=== PATIENT | male | born 1950 | race Caucasian/White ===

== ENCOUNTER 2016-12-08 10:32 | Emergency (ER) | payer SELFPAY ==
[~2016-12-08] VITALS: Ht 170.2 cm; Wt 70.0 kg
[2016-12-08 10:35] VITALS: BP 142/96
== END 2016-12-08 14:19 | disposition left against medical advice (07) ==
LOC: ER 10:43
DX: R10.9 Unspecified abdominal pain (principal); Z53.21 Procedure and treatment not carried out due to patient leaving prior to being seen by health care provider

== ENCOUNTER 2016-12-08 14:43 | Inpatient (IN) | payer MEDICAID, OTHER ==
[~2016-12-08] VITALS: Ht 162.6 cm; Wt 64.0 kg
[2016-12-08] MEDS ORDERED: SODIUM CHLORIDE 0.9% 1,000 ML IV ONE (16:28)
[2016-12-08] MEDS ORDERED: FAMOTIDINE 20MG/2ML VIAL IV STA (16:28)
[2016-12-08] MEDS ORDERED: ONDANSETRON HCL 4MG/2ML VIAL IV ONE (16:30)
[2016-12-08 16:54] LABS: HEMATOCRIT. 31.5 % (42.0-52.0); HEMOGLOBIN. 10.8 g/dL (14.0-18.0); MEAN CORPUSCULAR HEMOGLOBIN 29.8 pg (28.0-32.0); MEAN CORPUSCULAR VOLUME 86.3 fL (80.0-94.0); MEAN PLATELET VOLUME 8.2 fl (7.4-10.4); PLATELET 55 x1000/uL (130-400); RED BLOOD CELL COUNT 3.64 mill/uL (4.7-6.1); RED CELL DISTRIBUTION WIDTH 22.3 % (11.6-14.6)
[2016-12-08 16:59] LABS: INR 1.1; PROTHROMBIN TIME 11.7 sec
[2016-12-08 17:05] LABS: CARBON DIOXIDE 24 mEq/L (21-32); CHLORIDE 81 mEq/L (98-107); ETHANOL BLOOD < 10 mg/dL
[2016-12-08 17:12] LABS: PLATELET ESTIMATE DECREASED
[2016-12-08] MEDS ORDERED: LORAZEPAM 1MG TABLET PO ONE (18:30)
[2016-12-08 18:42] LABS: CLARITY URINE CLEAR (CLEAR); COLOR URINE YELLOW (YELLOW); GLUCOSE URINE 2+ (NEGATIVE); KETONES URINE NEGATIVE (NEGATIVE); LEUKOCYTE ESTERASE URINE NEGATIVE (NEGATIVE); NITRITE URINE NEGATIVE (NEGATIVE); OCCULT BLOOD URINE NEGATIVE (NEGATIVE); PROTEIN URINE NEGATIVE (NEGATIVE); SPECIFIC GRAVITY URINE 1.019 (1.005-1.030); UROBILINOGEN URINE 0.2 E.U./dL (0.2-1.0)
[2016-12-08 18:52] LABS: *AMPHETAMINES SCREEN URINE NEGATIVE (NEGATIVE); *BARBITURATES SCREEN URINE NEGATIVE (NEGATIVE); *BENZODIAZEPINES SCREEN URINE NEGATIVE (NEGATIVE); *COCAINE SCREEN URINE NEGATIVE (NEGATIVE); CANNABINOID URINE SCREEN NEGATIVE (NEGATIVE); METHADONE URINE SCREEN NEGATIVE (NEGATIVE); OPIATES URINE SCREEN NEGATIVE (NEGATIVE); PHENCYCLIDINE URINE SCREEN NEGATIVE (NEGATIVE)
[2016-12-08 21:30] VITALS: BP 161/110
[2016-12-08 22:30] VITALS: BP 161/110
[2016-12-08] MEDS ORDERED: MORPHINE SULFATE 2 MG/ML CPJ (NOT FOR IM USE) IV PRN (23:15)
[2016-12-09] VITALS: BP 159/101
[2016-12-09] MEDS ORDERED: SODIUM CHLORIDE 0.9% 1,000 ML IV SCH
[2016-12-09 03:30] LABS: *AMPHETAMINES SCREEN URINE NEGATIVE (NEGATIVE); *BARBITURATES SCREEN URINE NEGATIVE (NEGATIVE); *BENZODIAZEPINES SCREEN URINE NEGATIVE (NEGATIVE); *COCAINE SCREEN URINE NEGATIVE (NEGATIVE); CANNABINOID URINE SCREEN NEGATIVE (NEGATIVE); METHADONE URINE SCREEN NEGATIVE (NEGATIVE); OPIATES URINE SCREEN NEGATIVE (NEGATIVE); PHENCYCLIDINE URINE SCREEN NEGATIVE (NEGATIVE)
[2016-12-09 04:00] VITALS: BP 132/93
[2016-12-09 05:41] LABS: HEMATOCRIT. 31.8 % (42.0-52.0); HEMOGLOBIN. 10.8 g/dL (14.0-18.0); MEAN CORPUSCULAR HEMOGLOBIN 29.7 pg (28.0-32.0); MEAN CORPUSCULAR VOLUME 87.2 fL (80.0-94.0); MEAN PLATELET VOLUME 8.7 fl (7.4-10.4); RED BLOOD CELL COUNT 3.65 mill/uL (4.7-6.1); RED CELL DISTRIBUTION WIDTH 22.2 % (11.6-14.6)
[2016-12-09] MEDS: CHLORDIAZEPOXIDE 25MG CAPSULE PO SCH ×3 (06:30→21:32)
[2016-12-09 06:38] LABS: CHLORIDE 88 mEq/L (98-107)
[2016-12-09 06:40] LABS: PLATELET 42 x1000/uL (130-400)
[2016-12-09 06:56] LABS: CARBON DIOXIDE 24 mEq/L (21-32)
[2016-12-09 08:00] VITALS: BP 133/88
[2016-12-09] MEDS: LORAZEPAM 2MG/ML CPJ IV PRN ×2 (10:39→20:40)
[2016-12-09 12:00] VITALS: BP 149/99
[2016-12-09] MEDS: CLONIDINE 0.1MG TABLET PO PRN (13:09)
[2016-12-09] MEDS ORDERED: CHLORDIAZEPOXIDE 25MG CAPSULE PO SCH (14:00)
[2016-12-09 16:00] VITALS: BP 120/60
[2016-12-09 16:59] LABS: PLATELET ESTIMATE MARKEDLY DECREASED
[2016-12-09] MEDS ORDERED: POTASSIUM CHLORIDE INJ 40 MEQ in DEXT 5% WATER 500 ML IV SCH (18:00)
[2016-12-09 18:27] LABS: HEPATITIS B SURFACE ANTIGEN NEGATIVE
[2016-12-09 18:55] LABS: HEPATITIS B CORE AB IGM NEGATIVE
[2016-12-09 18:57] LABS: HEPATITIS A AB IGM NEGATIVE (NEGATIVE)
[2016-12-09 20:00] VITALS: BP 128/99
[2016-12-09] MEDS ORDERED: MAGNESIUM 1 G PREMIX 100 ML IV NR (21:00)
[2016-12-09] MEDS: FOLIC ACID 1 MG, THIAMINE HCL 100 MG, MVI, ADULT NO.1 10 ML in DEXTROSE 5% WATER 1,000 ML IV SCH ×4 (22:51)
[2016-12-10] VITALS: BP 178/99
[2016-12-10] MEDS: CLONIDINE 0.1MG TABLET PO PRN ×2 (00:52→21:19)
[2016-12-10 06:11] LABS: HEMATOCRIT. 32.2 % (42.0-52.0); MEAN CORPUSCULAR HEMOGLOBIN 30.6 pg (28.0-32.0); MEAN CORPUSCULAR VOLUME 89.9 fL (80.0-94.0); RED BLOOD CELL COUNT 3.59 mill/uL (4.7-6.1); RED CELL DISTRIBUTION WIDTH 22.6 % (11.6-14.6)
[2016-12-10] MEDS: CHLORDIAZEPOXIDE 25MG CAPSULE PO SCH ×3 (06:28→21:00)
[2016-12-10 06:52] LABS: CARBON DIOXIDE 27 mEq/L (21-32); CHLORIDE 89 mEq/L (98-107)
[2016-12-10 08:00] VITALS: BP 140/80
[2016-12-10 11:32] LABS: NUCLEATED RED BLOOD CELLS 2 /100 WBC
[2016-12-10 11:34] LABS: PLATELET ESTIMATE MARKEDLY DECREASED
[2016-12-10 11:36] LABS: PLATELET 50 x1000/uL (130-400)
[2016-12-10 12:00] VITALS: BP 130/80
[2016-12-10] MEDS: LACTULOSE 20G/30ML UDC PO SCH ×2 (15:00→21:00)
[2016-12-10 16:08] LABS: AMMONIA 59 uMol/L (<32)
[2016-12-10 20:00] VITALS: BP_SYST 104; BP_SYST 168; BP_DIAS 57; BP_DIAS 98
[2016-12-11] VITALS: BP 162/76
[2016-12-11 04:00] VITALS: BP 143/96
[2016-12-11] MEDS: LACTULOSE 20G/30ML UDC PO SCH ×3 (06:28→21:51)
[2016-12-11] MEDS: CHLORDIAZEPOXIDE 25MG CAPSULE PO SCH ×3 (06:28→21:51)
[2016-12-11 06:45] LABS: AMMONIA 43 uMol/L (<32)
[2016-12-11 06:48] LABS: HEMATOCRIT. 29.3 % (42.0-52.0); HEMOGLOBIN. 9.9 g/dL (14.0-18.0); MEAN CORPUSCULAR HEMOGLOBIN 30.4 pg (28.0-32.0); MEAN CORPUSCULAR VOLUME 90.1 fL (80.0-94.0); MEAN PLATELET VOLUME 8.7 fl (7.4-10.4); PLATELET 54 x1000/uL (130-400); RED BLOOD CELL COUNT 3.25 mill/uL (4.7-6.1); RED CELL DISTRIBUTION WIDTH 21.6 % (11.6-14.6)
[2016-12-11 07:20] LABS: CARBON DIOXIDE 25 mEq/L (21-32); CHLORIDE 93 mEq/L (98-107)
[2016-12-11 08:00] VITALS: BP 127/93
[2016-12-11 11:22] LABS: PLATELET ESTIMATE MARKEDLY DECREASED
[2016-12-11 12:00] VITALS: BP 116/76
[2016-12-11] MEDS ORDERED: POTASSIUM CHLORIDE INJ 40 MEQ in DEXT 5% WATER 250 ML IV NR (14:00)
[2016-12-11 16:00] VITALS: BP 105/70
[2016-12-11 20:00] VITALS: BP 175/86
[2016-12-11] MEDS: CLONIDINE 0.1MG TABLET PO PRN (21:51)
[2016-12-12] VITALS (7 sets, daily range): BP systolic 105–187; BP diastolic 79–108
[2016-12-12] MEDS: CHLORDIAZEPOXIDE 25MG CAPSULE PO SCH ×3 (06:00→21:20)
[2016-12-12] MEDS: LACTULOSE 20G/30ML UDC PO SCH ×3 (06:00→21:20)
[2016-12-12 06:59] LABS: HEMATOCRIT. 29.9 % (42.0-52.0); HEMOGLOBIN. 9.9 g/dL (14.0-18.0); MEAN CORPUSCULAR HEMOGLOBIN 30.4 pg (28.0-32.0); MEAN CORPUSCULAR VOLUME 91.5 fL (80.0-94.0); MEAN PLATELET VOLUME 8.5 fl (7.4-10.4); PLATELET 72 x1000/uL (130-400); RED BLOOD CELL COUNT 3.27 mill/uL (4.7-6.1); RED CELL DISTRIBUTION WIDTH 21.7 % (11.6-14.6)
[2016-12-12 07:15] LABS: AMMONIA 77 uMol/L (<32)
[2016-12-12 07:57] LABS: CARBON DIOXIDE 25 mEq/L (21-32); CHLORIDE 96 mEq/L (98-107)
[2016-12-12 08:02] LABS: PLATELET ESTIMATE DECREASED
[2016-12-12] MEDS ORDERED: POTASSIUM CHLORIDE 20MEQ TABLET SR PO SCH (08:30)
[2016-12-12] MEDS: DEXT 5%/0.45% NACL KCL 30MEQ/L 1,000 ML IV SCH ×2 (09:25→17:06)
[2016-12-12] MEDS: RIFAXIMIN 550 MG TABLET PO SCH (21:20)
[2016-12-13] VITALS: BP 165/108
[2016-12-13] MEDS: CLONIDINE 0.1MG TABLET PO PRN ×2 (00:28→06:21)
[2016-12-13] MEDS: DEXT 5%/0.45% NACL KCL 30MEQ/L 1,000 ML IV SCH ×3 (02:00→17:47)
[2016-12-13] MEDS: FOLIC ACID 1 MG, THIAMINE HCL 100 MG, MVI, ADULT NO.1 10 ML in DEXTROSE 5% WATER 1,000 ML IV SCH ×4 (03:09)
[2016-12-13 04:00] VITALS: BP 167/100
[2016-12-13 05:53] LABS: AMMONIA 35 uMol/L (<32)
[2016-12-13] MEDS: LACTULOSE 20G/30ML UDC PO SCH ×3 (06:21→21:03)
[2016-12-13] MEDS: CHLORDIAZEPOXIDE 25MG CAPSULE PO SCH ×3 (06:21→21:03)
[2016-12-13 08:00] VITALS: BP 109/71
[2016-12-13 08:13] LABS: CARBON DIOXIDE 25 mEq/L (21-32); CHLORIDE 98 mEq/L (98-107)
[2016-12-13] MEDS: RIFAXIMIN 550 MG TABLET PO SCH ×2 (08:57→21:03)
[2016-12-13 12:00] VITALS: BP 121/76
[2016-12-13 16:00] VITALS: BP 146/95
[2016-12-13 20:00] VITALS: BP 132/96
[2016-12-14] VITALS: BP 152/112
[2016-12-14] MEDS ORDERED: MORPHINE SULFATE 2 MG/ML CPJ (NOT FOR IM USE) IV PRN (00:45)
[2016-12-14] MEDS: FOLIC ACID 1 MG, THIAMINE HCL 100 MG, MVI, ADULT NO.1 10 ML in DEXTROSE 5% WATER 1,000 ML IV SCH ×4 (01:25)
[2016-12-14] MEDS: DEXT 5%/0.45% NACL KCL 30MEQ/L 1,000 ML IV SCH ×3 (02:00→17:39)
[2016-12-14 04:00] VITALS: BP 94/65
[2016-12-14 05:46] LABS: AMMONIA 34 uMol/L (<32)
[2016-12-14] MEDS: CHLORDIAZEPOXIDE 25MG CAPSULE PO SCH ×2 (06:23→21:37)
[2016-12-14] MEDS: LACTULOSE 20G/30ML UDC PO SCH ×3 (06:23→21:37)
[2016-12-14 08:00] VITALS: BP 103/68
[2016-12-14] MEDS: RIFAXIMIN 550 MG TABLET PO SCH ×2 (08:57→21:37)
[2016-12-14 12:00] VITALS: BP 109/67
[2016-12-14 16:00] VITALS: BP 142/103
[2016-12-14 20:00] VITALS: BP 104/65
[2016-12-14 20:09] LABS: AMMONIA 33 uMol/L (<32)
[2016-12-15] VITALS: BP 113/68
[2016-12-15] MEDS: FOLIC ACID 1 MG, THIAMINE HCL 100 MG, MVI, ADULT NO.1 10 ML in DEXTROSE 5% WATER 1,000 ML IV SCH ×4 (01:51)
[2016-12-15] MEDS: DEXT 5%/0.45% NACL KCL 30MEQ/L 1,000 ML IV SCH ×3 (01:52→23:42)
[2016-12-15 04:00] VITALS: BP 142/84
[2016-12-15] MEDS: LACTULOSE 20G/30ML UDC PO SCH ×3 (05:32→23:42)
[2016-12-15] MEDS: CHLORDIAZEPOXIDE 25MG CAPSULE PO SCH ×3 (05:32→23:44)
[2016-12-15 06:31] LABS: HEMATOCRIT. 26.7 % (42.0-52.0); HEMOGLOBIN. 8.9 g/dL (14.0-18.0); MEAN CORPUSCULAR HEMOGLOBIN 31.1 pg (28.0-32.0); MEAN CORPUSCULAR VOLUME 93.8 fL (80.0-94.0); MEAN PLATELET VOLUME 8.6 fl (7.4-10.4); PLATELET 123 x1000/uL (130-400); RED BLOOD CELL COUNT 2.85 mill/uL (4.7-6.1); RED CELL DISTRIBUTION WIDTH 21.1 % (11.6-14.6)
[2016-12-15 06:45] LABS: AMMONIA 51 uMol/L (<32)
[2016-12-15 07:03] LABS: CHLORIDE 97 mEq/L (98-107)
[2016-12-15 07:13] LABS: CARBON DIOXIDE 22 mEq/L (21-32)
[2016-12-15 08:00] VITALS: BP 138/80
[2016-12-15 09:23] LABS: PLATELET ESTIMATE DECREASED
[2016-12-15] MEDS ORDERED: MAGNESIUM 2 G PREMIX 50 ML IV SCH (10:00)
[2016-12-15 12:00] VITALS: BP 168/103
[2016-12-15] MEDS: RIFAXIMIN 550 MG TABLET PO SCH ×2 (12:28→23:44)
[2016-12-15] MEDS: CLONIDINE 0.1MG TABLET PO PRN (12:28)
[2016-12-15] MEDS: MORPHINE SULFATE 2 MG/ML CPJ (NOT FOR IM USE) IV PRN ×2 (12:35→23:43)
[2016-12-15 16:00] VITALS: BP 108/72
[2016-12-15 20:00] VITALS: BP 132/77
[2016-12-16] VITALS: BP 153/92
[2016-12-16] MEDS: DEXT 5%/0.45% NACL KCL 30MEQ/L 1,000 ML IV SCH ×4 (02:00→22:55)
[2016-12-16 04:00] VITALS: BP 139/92
[2016-12-16] MEDS: CHLORDIAZEPOXIDE 25MG CAPSULE PO SCH ×3 (06:49→22:55)
[2016-12-16] MEDS: LACTULOSE 20G/30ML UDC PO SCH ×2 (06:49→17:11)
[2016-12-16 07:06] LABS: AMMONIA 47 uMol/L (<32)
[2016-12-16 08:00] VITALS: BP 101/74
[2016-12-16] MEDS: RIFAXIMIN 550 MG TABLET PO SCH ×2 (11:21→22:55)
[2016-12-16 11:45] VITALS: BP 122/89
[2016-12-16 16:00] VITALS: BP 126/73
[2016-12-16] MEDS: MAGNESIUM 4 G PREMIX 100 ML IV NR ×2 (17:11→18:39)
[2016-12-16 20:00] VITALS: BP 151/102
[2016-12-16] MEDS: CLONIDINE 0.1MG TABLET PO PRN (22:55)
[2016-12-17] VITALS: BP 141/97
[2016-12-17 04:00] VITALS: BP 114/72
[2016-12-17] MEDS: CHLORDIAZEPOXIDE 25MG CAPSULE PO SCH ×3 (05:47→21:49)
[2016-12-17 06:46] LABS: AMMONIA 35 uMol/L (<32)
[2016-12-17 08:00] VITALS: BP 111/76
[2016-12-17] MEDS: RIFAXIMIN 550 MG TABLET PO SCH ×2 (08:27→21:46)
[2016-12-17] MEDS: DEXT 5%/0.45% NACL KCL 30MEQ/L 1,000 ML IV SCH ×2 (08:27→16:40)
[2016-12-17] MEDS: LACTULOSE 20G/30ML UDC PO SCH ×2 (08:27→16:40)
[2016-12-17 12:00] VITALS: BP 130/74
[2016-12-17 16:00] VITALS: BP 133/81
[2016-12-17 20:00] VITALS: BP 180/91
[2016-12-18] VITALS: BP 142/85
[2016-12-18] MEDS: DEXT 5%/0.45% NACL KCL 30MEQ/L 1,000 ML IV SCH ×3 (01:35→16:09)
[2016-12-18 04:00] VITALS: BP 178/73
[2016-12-18] MEDS: CHLORDIAZEPOXIDE 25MG CAPSULE PO SCH ×3 (05:49→21:09)
[2016-12-18 08:00] VITALS: BP 128/83
[2016-12-18] MEDS: RIFAXIMIN 550 MG TABLET PO SCH ×2 (08:43→21:09)
[2016-12-18] MEDS: LACTULOSE 20G/30ML UDC PO SCH ×3 (08:43→16:09)
[2016-12-18 11:30] LABS: AMMONIA 47 uMol/L (<32)
[2016-12-18 12:00] VITALS: BP 106/81
[2016-12-18 16:00] VITALS: BP 118/89
[2016-12-18 20:00] VITALS: BP 152/89
[2016-12-19] VITALS (8 sets, daily range): BP systolic 112–166; BP diastolic 76–94
[2016-12-19] MEDS: DEXT 5%/0.45% NACL KCL 30MEQ/L 1,000 ML IV SCH ×3 (02:28→18:00)
[2016-12-19] MEDS: CHLORDIAZEPOXIDE 25MG CAPSULE PO SCH ×3 (05:40→21:13)
[2016-12-19 06:22] LABS: AMMONIA 39 uMol/L (<32)
[2016-12-19 06:51] LABS: BASOPHILS % 2.3 % (0.0-2.0); EOSINOPHILS % 3.5 % (0.0-5.0); HEMATOCRIT. 25.5 % (42.0-52.0); HEMOGLOBIN. 8.5 g/dL (14.0-18.0); LYMPHOCYTES % 22.8 % (20.0-50.0); MEAN CORPUSCULAR HEMOGLOBIN 31.8 pg (28.0-32.0); MEAN CORPUSCULAR VOLUME 95.5 fL (80.0-94.0); MEAN PLATELET VOLUME 8.4 fl (7.4-10.4); MONOCYTES % 12.9 % (2.0-8.0); NEUTROPHILS % 58.5 % (40.0-76.0); PLATELET 214 x1000/uL (130-400); RED BLOOD CELL COUNT 2.67 mill/uL (4.7-6.1); RED CELL DISTRIBUTION WIDTH 21.6 % (11.6-14.6)
[2016-12-19 07:14] LABS: CHLORIDE 95 mEq/L (98-107)
[2016-12-19 07:38] LABS: CARBON DIOXIDE 23 mEq/L (21-32)
[2016-12-19] MEDS: LACTULOSE 20G/30ML UDC PO SCH ×4 (10:02→18:34)
[2016-12-19] MEDS: RIFAXIMIN 550 MG TABLET PO SCH ×2 (10:02→21:12)
[2016-12-19] MEDS: MORPHINE SULFATE 2 MG/ML CPJ (NOT FOR IM USE) IV PRN (13:43)
[2016-12-19 18:40] LABS: AMMONIA 73 uMol/L (<32)
[2016-12-19] MEDS ORDERED: BISACODYL 5MG TABLET PO PRN (19:30)
[2016-12-19] MEDS ORDERED: BISACODYL 5MG TABLET PO NR (19:45)
[2016-12-19] MEDS ORDERED: MAGNESIUM 2 G PREMIX 50 ML IV NR (21:00)
[2016-12-20] VITALS: BP 148/71
[2016-12-20] MEDS: CLONIDINE 0.1MG TABLET PO PRN (00:34)
[2016-12-20] MEDS: DEXT 5%/0.45% NACL KCL 30MEQ/L 1,000 ML IV SCH ×2 (02:47→13:23)
[2016-12-20 04:00] VITALS: BP 150/74
[2016-12-20 08:00] VITALS: BP 120/53
[2016-12-20] MEDS: LACTULOSE 20G/30ML UDC PO SCH ×3 (09:49→17:00)
[2016-12-20] MEDS: RIFAXIMIN 550 MG TABLET PO SCH ×2 (09:49→20:49)
[2016-12-20 12:00] VITALS: BP 111/47
[2016-12-20 16:00] VITALS: BP 108/51
[2016-12-20 20:00] VITALS: BP 158/83
[2016-12-20] MEDS: LORAZEPAM 0.5MG TABLET PO PRN (21:43)
[2016-12-21] VITALS: BP 171/75
[2016-12-21] MEDS: DEXT 5%/0.45% NACL KCL 30MEQ/L 1,000 ML IV SCH ×4 (02:00→21:17)
[2016-12-21] MEDS: LORAZEPAM 0.5MG TABLET PO PRN (03:01)
[2016-12-21 04:00] VITALS: BP 133/65
[2016-12-21 08:00] VITALS: BP 112/70
[2016-12-21] MEDS: LACTULOSE 20G/30ML UDC PO SCH ×3 (09:09→17:00)
[2016-12-21] MEDS: RIFAXIMIN 550 MG TABLET PO SCH ×2 (09:09→21:16)
[2016-12-21 12:00] VITALS: BP 116/71
[2016-12-21 16:00] VITALS: BP 148/100
[2016-12-21 20:00] VITALS: BP 136/95
[2016-12-22 00:27] VITALS: BP 128/87
[2016-12-22] MEDS: DEXT 5%/0.45% NACL KCL 30MEQ/L 1,000 ML IV SCH ×3 (01:15→19:01)
[2016-12-22 04:00] VITALS: BP 122/82
[2016-12-22 08:00] VITALS: BP 124/82
[2016-12-22] MEDS: LACTULOSE 20G/30ML UDC PO SCH ×6 (09:00→19:01)
[2016-12-22] MEDS: RIFAXIMIN 550 MG TABLET PO SCH ×4 (09:00→20:28)
[2016-12-22 12:00] VITALS: BP 141/99
[2016-12-22] MEDS: ONDANSETRON HCL 4MG/2ML VIAL IV PRN (12:12)
[2016-12-22 16:00] VITALS: BP 140/96
[2016-12-23] VITALS (8 sets, daily range): BP systolic 115–151; BP diastolic 75–99
[2016-12-23] MEDS: DEXT 5%/0.45% NACL KCL 30MEQ/L 1,000 ML IV SCH ×3 (02:57→18:49)
[2016-12-23 06:46] LABS: AMMONIA 21 uMol/L (<32)
[2016-12-23 06:58] LABS: HEMATOCRIT 28.6 % (42.0-52.0); HEMOGLOBIN 9.9 g/dL (14.0-18.0); MEAN CORPUSCULAR HEMOGLOBIN 32.7 pg (28.0-32.0); MEAN CORPUSCULAR VOLUME 94.5 fL (80.0-94.0); PLATELET 352 x1000/uL (130-400); RED BLOOD CELL COUNT 3.02 mill/uL (4.7-6.1); RED CELL DISTRIBUTION WIDTH 21.7 % (11.6-14.6)
[2016-12-23 07:43] LABS: CARBON DIOXIDE 25 mEq/L (21-32); CHLORIDE 94 mEq/L (98-107)
[2016-12-23] MEDS: RIFAXIMIN 550 MG TABLET PO SCH ×2 (09:32→20:31)
[2016-12-23] MEDS: LACTULOSE 20G/30ML UDC PO SCH ×2 (09:32→18:48)
[2016-12-23] MEDS ORDERED: MORPHINE SULFATE 2 MG/ML CPJ (NOT FOR IM USE) IV PRN (15:30)
[2016-12-23] MEDS: CLONIDINE 0.1MG TABLET PO PRN (15:43)
[2016-12-23] MEDS: FAMOTIDINE 20MG/2ML VIAL IV SCH (20:32)
[2016-12-24] VITALS: BP 135/83
[2016-12-24] MEDS: DEXT 5%/0.45% NACL KCL 30MEQ/L 1,000 ML IV SCH ×3 (02:57→21:29)
[2016-12-24 04:00] VITALS: BP 132/89
[2016-12-24 06:47] LABS: AMMONIA 34 uMol/L (<32)
[2016-12-24 07:00] LABS: BASOPHILS % 2.7 % (0.0-2.0); HEMATOCRIT. 25.2 % (42.0-52.0); HEMOGLOBIN. 8.6 g/dL (14.0-18.0); LYMPHOCYTES % 15.2 % (20.0-50.0); MEAN CORPUSCULAR HEMOGLOBIN 33.1 pg (28.0-32.0); MEAN CORPUSCULAR VOLUME 97.1 fL (80.0-94.0); MEAN PLATELET VOLUME 8.2 fl (7.4-10.4); MONOCYTES % 12.5 % (2.0-8.0); NEUTROPHILS % 64.6 % (40.0-76.0); PLATELET 327 x1000/uL (130-400); RED BLOOD CELL COUNT 2.59 mill/uL (4.7-6.1); RED CELL DISTRIBUTION WIDTH 21.3 % (11.6-14.6)
[2016-12-24 07:57] LABS: CARBON DIOXIDE 21 mEq/L (21-32); CHLORIDE 97 mEq/L (98-107)
[2016-12-24 08:00] VITALS: BP 142/96
[2016-12-24] MEDS: LACTULOSE 20G/30ML UDC PO SCH ×2 (09:42→17:00)
[2016-12-24] MEDS: RIFAXIMIN 550 MG TABLET PO SCH ×2 (09:42→21:29)
[2016-12-24] MEDS: FAMOTIDINE 20MG/2ML VIAL IV SCH ×2 (09:42→21:29)
[2016-12-24 12:00] VITALS: BP 129/93
[2016-12-24 16:00] VITALS: BP 121/72
[2016-12-24 20:00] VITALS: BP 141/104
[2016-12-24] MEDS: LORAZEPAM 0.5MG TABLET PO PRN (22:47)
[2016-12-25] VITALS: BP 167/110
[2016-12-25] MEDS: CLONIDINE 0.1MG TABLET PO PRN ×3 (00:59→20:47)
[2016-12-25] MEDS: DEXT 5%/0.45% NACL KCL 30MEQ/L 1,000 ML IV SCH ×3 (01:49→17:45)
[2016-12-25 04:00] VITALS: BP 150/99
[2016-12-25 06:26] LABS: HEMATOCRIT. 26.9 % (42.0-52.0); HEMOGLOBIN. 9.2 g/dL (14.0-18.0); MEAN CORPUSCULAR HEMOGLOBIN 33.2 pg (28.0-32.0); MEAN CORPUSCULAR VOLUME 97.4 fL (80.0-94.0); MEAN PLATELET VOLUME 8.2 fl (7.4-10.4); PLATELET 389 x1000/uL (130-400); RED BLOOD CELL COUNT 2.76 mill/uL (4.7-6.1); RED CELL DISTRIBUTION WIDTH 21.5 % (11.6-14.6)
[2016-12-25 06:31] LABS: AMMONIA 51 uMol/L (<32)
[2016-12-25 07:44] LABS: CARBON DIOXIDE 22 mEq/L (21-32); CHLORIDE 95 mEq/L (98-107)
[2016-12-25 08:00] VITALS: BP 143/97
[2016-12-25] MEDS: RIFAXIMIN 550 MG TABLET PO SCH ×2 (08:44→20:47)
[2016-12-25] MEDS: LACTULOSE 20G/30ML UDC PO SCH ×3 (08:44→17:22)
[2016-12-25] MEDS: FAMOTIDINE 20MG/2ML VIAL IV SCH ×2 (08:44→20:47)
[2016-12-25 12:00] VITALS: BP 135/94
[2016-12-25 12:09] LABS: PLATELET ESTIMATE SLIGHTLY INCREASED
[2016-12-25 16:00] VITALS: BP 140/78
[2016-12-25] MEDS: LORAZEPAM 0.5MG TABLET PO PRN (17:22)
[2016-12-25 20:00] VITALS: BP 164/116
[2016-12-26] VITALS (7 sets, daily range): BP systolic 108–194; BP diastolic 60–104
[2016-12-26] MEDS: DEXT 5%/0.45% NACL KCL 30MEQ/L 1,000 ML IV SCH ×3 (02:32→17:59)
[2016-12-26 06:39] LABS: AMMONIA 38 uMol/L (<32)
[2016-12-26 06:40] LABS: AMYLASE 86 IU/L (25-115)
[2016-12-26] MEDS: FAMOTIDINE 20MG/2ML VIAL IV SCH ×2 (08:38→20:14)
[2016-12-26] MEDS: RIFAXIMIN 550 MG TABLET PO SCH ×2 (08:45→20:14)
[2016-12-26] MEDS: LACTULOSE 20G/30ML UDC PO SCH ×2 (08:46→17:59)
[2016-12-26] MEDS: LORAZEPAM 0.5MG TABLET PO PRN (20:14)
[2016-12-26] MEDS: CLONIDINE 0.1MG TABLET PO PRN (20:15)
[2016-12-27] VITALS: BP 140/68
[2016-12-27] MEDS: DEXT 5%/0.45% NACL KCL 30MEQ/L 1,000 ML IV SCH ×3 (02:08→17:07)
[2016-12-27 04:00] VITALS: BP 155/77
[2016-12-27 05:41] LABS: AMMONIA 45 uMol/L (<32)
[2016-12-27 08:00] VITALS: BP 145/98
[2016-12-27] MEDS: LACTULOSE 20G/30ML UDC PO SCH ×2 (08:47→17:07)
[2016-12-27] MEDS: LORAZEPAM 0.5MG TABLET PO PRN ×3 (08:55→20:23)
[2016-12-27] MEDS: RIFAXIMIN 550 MG TABLET PO SCH ×2 (08:55→20:23)
[2016-12-27] MEDS: FAMOTIDINE 20MG/2ML VIAL IV SCH ×2 (08:55→20:23)
[2016-12-27 16:00] VITALS: BP 138/84
[2016-12-27 20:00] VITALS: BP 143/98
[2016-12-28] VITALS: BP 148/104
[2016-12-28] MEDS: DEXT 5%/0.45% NACL KCL 30MEQ/L 1,000 ML IV SCH ×3 (01:31→21:36)
[2016-12-28] MEDS: LORAZEPAM 0.5MG TABLET PO PRN ×2 (02:59→12:38)
[2016-12-28 04:00] VITALS: BP 143/98
[2016-12-28 05:58] LABS: BASOPHILS % 1.5 % (0.0-2.0); EOSINOPHILS % 10.1 % (0.0-5.0); HEMATOCRIT. 28.8 % (42.0-52.0); HEMOGLOBIN. 9.7 g/dL (14.0-18.0); LYMPHOCYTES % 26.7 % (20.0-50.0); MEAN CORPUSCULAR HEMOGLOBIN 33.1 pg (28.0-32.0); MEAN CORPUSCULAR VOLUME 98.1 fL (80.0-94.0); MEAN PLATELET VOLUME 8.6 fl (7.4-10.4); MONOCYTES % 10.5 % (2.0-8.0); NEUTROPHILS % 51.2 % (40.0-76.0); PLATELET 432 x1000/uL (130-400); RED BLOOD CELL COUNT 2.93 mill/uL (4.7-6.1); RED CELL DISTRIBUTION WIDTH 21.3 % (11.6-14.6)
[2016-12-28 07:15] LABS: CHLORIDE 99 mEq/L (98-107)
[2016-12-28 07:22] LABS: AMMONIA 86 uMol/L (<32); CARBON DIOXIDE 20 mEq/L (21-32)
[2016-12-28 08:00] VITALS: BP 145/99
[2016-12-28] MEDS: RIFAXIMIN 550 MG TABLET PO SCH ×3 (09:00→21:39)
[2016-12-28] MEDS: LACTULOSE 20G/30ML UDC PO SCH ×3 (09:00→17:00)
[2016-12-28] MEDS: FAMOTIDINE 20MG/2ML VIAL IV SCH ×2 (09:36→21:36)
[2016-12-28 12:00] VITALS: BP 138/90
[2016-12-28] MEDS ORDERED: MORPHINE SULFATE 4 MG/ML CPJ (NOT FOR IM USE) IV PRN (12:19)
[2016-12-28] MEDS: MULTIVITAMINS,THER W-MINERALS TABLET PO SCH (18:28)
[2016-12-28] MEDS: THIAMINE HCL 100MG TABLET PO SCH (18:28)
[2016-12-28] MEDS: FOLIC ACID 1MG TABLET PO SCH (18:28)
[2016-12-28 20:00] VITALS: BP 143/99
[2016-12-29] VITALS: BP 153/96
[2016-12-29] MEDS: DEXT 5%/0.45% NACL KCL 30MEQ/L 1,000 ML IV SCH ×2 (02:00→08:30)
[2016-12-29 04:00] VITALS: BP 136/82
[2016-12-29 06:01] LABS: BASOPHILS % 1.5 % (0.0-2.0); HEMATOCRIT. 28.1 % (42.0-52.0); HEMOGLOBIN. 9.6 g/dL (14.0-18.0); LYMPHOCYTES % 29.1 % (20.0-50.0); MEAN CORPUSCULAR HEMOGLOBIN 33.4 pg (28.0-32.0); MEAN CORPUSCULAR VOLUME 97.9 fL (80.0-94.0); MEAN PLATELET VOLUME 8.3 fl (7.4-10.4); MONOCYTES % 10.5 % (2.0-8.0); NEUTROPHILS % 47.9 % (40.0-76.0); PLATELET 377 x1000/uL (130-400); RED BLOOD CELL COUNT 2.87 mill/uL (4.7-6.1); RED CELL DISTRIBUTION WIDTH 21.2 % (11.6-14.6)
[2016-12-29 06:36] LABS: CARBON DIOXIDE 21 mEq/L (21-32); CHLORIDE 97 mEq/L (98-107)
[2016-12-29 06:37] LABS: AMMONIA 67 uMol/L (<32)
[2016-12-29 08:00] VITALS: BP 147/99
[2016-12-29] MEDS: MULTIVITAMINS,THER W-MINERALS TABLET PO SCH (08:21)
[2016-12-29] MEDS: THIAMINE HCL 100MG TABLET PO SCH (08:22)
[2016-12-29] MEDS: LACTULOSE 20G/30ML UDC PO SCH ×2 (08:22→17:00)
[2016-12-29] MEDS: FAMOTIDINE 20MG/2ML VIAL IV SCH (08:22)
[2016-12-29] MEDS: FOLIC ACID 1MG TABLET PO SCH (08:22)
[2016-12-29] MEDS: RIFAXIMIN 550 MG TABLET PO SCH (08:23)
[2016-12-29 12:00] VITALS: BP 138/98
[2016-12-29 16:00] VITALS: BP 126/84
[2016-12-29 20:00] VITALS: BP 163/92
[2016-12-30] VITALS: BP 154/86
[2016-12-30] MEDS: FAMOTIDINE 20MG/2ML VIAL IV SCH ×2 (00:10→09:14)
[2016-12-30] MEDS: DEXT 5%/0.45% NACL KCL 30MEQ/L 1,000 ML IV SCH ×3 (00:10→16:50)
[2016-12-30] MEDS: RIFAXIMIN 550 MG TABLET PO SCH ×2 (00:10→09:14)
[2016-12-30 04:00] VITALS: BP 123/79
[2016-12-30 06:41] LABS: BASOPHILS % 1.4 % (0.0-2.0); EOSINOPHILS % 10.6 % (0.0-5.0); HEMATOCRIT. 25.6 % (42.0-52.0); HEMOGLOBIN. 8.7 g/dL (14.0-18.0); MEAN CORPUSCULAR HEMOGLOBIN 33.1 pg (28.0-32.0); MEAN CORPUSCULAR VOLUME 97.5 fL (80.0-94.0); MEAN PLATELET VOLUME 8.2 fl (7.4-10.4); MONOCYTES % 9.9 % (2.0-8.0); NEUTROPHILS % 54.1 % (40.0-76.0); PLATELET 324 x1000/uL (130-400); RED BLOOD CELL COUNT 2.63 mill/uL (4.7-6.1); RED CELL DISTRIBUTION WIDTH 20.8 % (11.6-14.6)
[2016-12-30 06:48] LABS: AMMONIA 74 uMol/L (<32)
[2016-12-30 08:00] VITALS: BP 135/92
[2016-12-30 08:54] LABS: CARBON DIOXIDE 22 mEq/L (21-32); CHLORIDE 98 mEq/L (98-107)
[2016-12-30] MEDS: LACTULOSE 20G/30ML UDC PO SCH ×2 (09:14→16:50)
[2016-12-30] MEDS: MULTIVITAMINS,THER W-MINERALS TABLET PO SCH (09:14)
[2016-12-30] MEDS: FOLIC ACID 1MG TABLET PO SCH (09:14)
[2016-12-30] MEDS: THIAMINE HCL 100MG TABLET PO SCH (09:14)
[2016-12-30 12:00] VITALS: BP 132/93
[2016-12-30 16:00] VITALS: BP 133/90
[2016-12-30 20:00] VITALS: BP 141/100
[2016-12-31] VITALS: BP 131/84
[2016-12-31] MEDS: RIFAXIMIN 550 MG TABLET PO SCH ×3 (00:13→21:11)
[2016-12-31] MEDS: FAMOTIDINE 20MG/2ML VIAL IV SCH ×3 (00:13→21:11)
[2016-12-31] MEDS: DEXT 5%/0.45% NACL KCL 30MEQ/L 1,000 ML IV SCH ×4 (00:13→19:08)
[2016-12-31 04:00] VITALS: BP 122/80
[2016-12-31 07:40] LABS: BASOPHILS % 1.4 % (0.0-2.0); HEMATOCRIT. 24.6 % (42.0-52.0); HEMOGLOBIN. 8.5 g/dL (14.0-18.0); LYMPHOCYTES % 28.9 % (20.0-50.0); MEAN CORPUSCULAR HEMOGLOBIN 33.6 pg (28.0-32.0); MEAN PLATELET VOLUME 8.1 fl (7.4-10.4); MONOCYTES % 10.1 % (2.0-8.0); NEUTROPHILS % 48.6 % (40.0-76.0); PLATELET 276 x1000/uL (130-400); RED BLOOD CELL COUNT 2.51 mill/uL (4.7-6.1); RED CELL DISTRIBUTION WIDTH 20.7 % (11.6-14.6)
[2016-12-31 08:00] VITALS: BP 129/67
[2016-12-31 08:23] LABS: AMMONIA 55 uMol/L (<32)
[2016-12-31 08:50] LABS: CARBON DIOXIDE 23 mEq/L (21-32); CHLORIDE 98 mEq/L (98-107)
[2016-12-31] MEDS: FOLIC ACID 1MG TABLET PO SCH (09:59)
[2016-12-31] MEDS: THIAMINE HCL 100MG TABLET PO SCH (09:59)
[2016-12-31] MEDS: MULTIVITAMINS,THER W-MINERALS TABLET PO SCH (09:59)
[2016-12-31] MEDS: LACTULOSE 20G/30ML UDC PO SCH ×2 (09:59→19:11)
[2016-12-31 12:00] VITALS: BP 117/73
[2016-12-31 16:00] VITALS: BP 129/88
[2016-12-31 20:00] VITALS: BP 140/81
[2016-12-31] MEDS: ONDANSETRON HCL 4MG/2ML VIAL IV PRN (22:36)
[2017-01-01] VITALS: BP 132/80
[2017-01-01] MEDS: DEXT 5%/0.45% NACL KCL 30MEQ/L 1,000 ML IV SCH ×3 (03:04→18:40)
[2017-01-01 04:00] VITALS: BP 133/88
[2017-01-01 08:00] VITALS: BP 128/85
[2017-01-01] MEDS: FOLIC ACID 1MG TABLET PO SCH (09:56)
[2017-01-01] MEDS: THIAMINE HCL 100MG TABLET PO SCH (09:56)
[2017-01-01] MEDS: FAMOTIDINE 20MG/2ML VIAL IV SCH ×2 (09:56→20:37)
[2017-01-01] MEDS: RIFAXIMIN 550 MG TABLET PO SCH ×2 (09:56→20:37)
[2017-01-01] MEDS: MULTIVITAMINS,THER W-MINERALS TABLET PO SCH (09:56)
[2017-01-01] MEDS: LACTULOSE 20G/30ML UDC PO SCH ×2 (09:56→18:40)
[2017-01-01 12:00] VITALS: BP 126/85
[2017-01-01 12:18] LABS: AMYLASE 141 IU/L (25-115)
[2017-01-01 16:00] VITALS: BP 126/82
[2017-01-01 20:00] VITALS: BP 127/82
[2017-01-02] VITALS: BP 143/92
[2017-01-02] MEDS: DEXT 5%/0.45% NACL KCL 30MEQ/L 1,000 ML IV SCH ×3 (02:46→17:22)
[2017-01-02 04:00] VITALS: BP 150/98
[2017-01-02 08:00] VITALS: BP 167/99
[2017-01-02] MEDS: FOLIC ACID 1MG TABLET PO SCH (08:21)
[2017-01-02] MEDS: LACTULOSE 20G/30ML UDC PO SCH ×2 (08:21→17:22)
[2017-01-02] MEDS: RIFAXIMIN 550 MG TABLET PO SCH ×2 (08:21→20:54)
[2017-01-02] MEDS: THIAMINE HCL 100MG TABLET PO SCH (08:21)
[2017-01-02] MEDS: MULTIVITAMINS,THER W-MINERALS TABLET PO SCH (08:21)
[2017-01-02] MEDS: FAMOTIDINE 20MG/2ML VIAL IV SCH ×2 (08:21→20:54)
[2017-01-02 09:22] LABS: AMYLASE 152 IU/L (25-115)
[2017-01-02 11:50] VITALS: BP 121/73
[2017-01-02 16:00] VITALS: BP 122/75
[2017-01-02 20:00] VITALS: BP 115/77
[2017-01-03] VITALS: BP 120/74
[2017-01-03] MEDS: DEXT 5%/0.45% NACL KCL 30MEQ/L 1,000 ML IV SCH ×3 (01:31→17:32)
[2017-01-03 04:00] VITALS: BP 134/84
[2017-01-03 08:01] VITALS: BP 131/80
[2017-01-03] MEDS: FAMOTIDINE 20MG/2ML VIAL IV SCH ×2 (08:25→20:42)
[2017-01-03] MEDS: LACTULOSE 20G/30ML UDC PO SCH ×2 (08:25→16:13)
[2017-01-03] MEDS: MULTIVITAMINS,THER W-MINERALS TABLET PO SCH (08:25)
[2017-01-03] MEDS: THIAMINE HCL 100MG TABLET PO SCH (08:25)
[2017-01-03] MEDS: FOLIC ACID 1MG TABLET PO SCH (08:25)
[2017-01-03] MEDS: RIFAXIMIN 550 MG TABLET PO SCH ×2 (08:25→20:42)
[2017-01-03 11:34] LABS: BASOPHILS % 1.3 % (0.0-2.0); EOSINOPHILS % 11.7 % (0.0-5.0); HEMATOCRIT. 26.9 % (42.0-52.0); LYMPHOCYTES % 25.2 % (20.0-50.0); MEAN CORPUSCULAR VOLUME 98.5 fL (80.0-94.0); MEAN PLATELET VOLUME 8.9 fl (7.4-10.4); MONOCYTES % 9.6 % (2.0-8.0); NEUTROPHILS % 52.2 % (40.0-76.0); PLATELET 205 x1000/uL (130-400); RED BLOOD CELL COUNT 2.74 mill/uL (4.7-6.1); RED CELL DISTRIBUTION WIDTH 20.4 % (11.6-14.6)
[2017-01-03 12:00] VITALS: BP 122/74
[2017-01-03 12:04] LABS: CARBON DIOXIDE 24 mEq/L (21-32); CHLORIDE 98 mEq/L (98-107)
[2017-01-03 15:44] VITALS: BP 122/76
[2017-01-03 20:00] VITALS: BP 124/80
[2017-01-04] VITALS: BP 119/74
[2017-01-04] MEDS: DEXT 5%/0.45% NACL KCL 30MEQ/L 1,000 ML IV SCH ×3 (01:35→17:04)
[2017-01-04 04:00] VITALS: BP 142/85
[2017-01-04 08:00] VITALS: BP 140/82
[2017-01-04] MEDS: FAMOTIDINE 20MG/2ML VIAL IV SCH ×2 (09:07→20:45)
[2017-01-04] MEDS: LACTULOSE 20G/30ML UDC PO SCH ×2 (09:07→17:04)
[2017-01-04] MEDS: MULTIVITAMINS,THER W-MINERALS TABLET PO SCH (09:07)
[2017-01-04] MEDS: FOLIC ACID 1MG TABLET PO SCH (09:07)
[2017-01-04] MEDS: THIAMINE HCL 100MG TABLET PO SCH (09:07)
[2017-01-04] MEDS: RIFAXIMIN 550 MG TABLET PO SCH ×2 (09:07→20:45)
[2017-01-04 12:00] VITALS: BP 143/94
[2017-01-04 16:00] VITALS: BP 143/94
[2017-01-04 20:22] VITALS: BP 147/96
[2017-01-05] VITALS (7 sets, daily range): BP systolic 105–145; BP diastolic 70–90
[2017-01-05] MEDS: DEXT 5%/0.45% NACL KCL 30MEQ/L 1,000 ML IV SCH ×3 (02:54→17:13)
[2017-01-05] MEDS: RIFAXIMIN 550 MG TABLET PO SCH ×2 (08:37→21:05)
[2017-01-05] MEDS: MULTIVITAMINS,THER W-MINERALS TABLET PO SCH (08:37)
[2017-01-05] MEDS: THIAMINE HCL 100MG TABLET PO SCH (08:37)
[2017-01-05] MEDS: FAMOTIDINE 20MG/2ML VIAL IV SCH ×2 (08:37→21:03)
[2017-01-05] MEDS: LACTULOSE 20G/30ML UDC PO SCH ×2 (08:37→16:47)
[2017-01-05] MEDS: FOLIC ACID 1MG TABLET PO SCH (08:37)
[2017-01-06 00:02] LABS: BASOPHILS % 0.9 % (0.0-2.0); EOSINOPHILS % 11.1 % (0.0-5.0); HEMATOCRIT. 26.1 % (42.0-52.0); HEMOGLOBIN. 8.9 g/dL (14.0-18.0); LYMPHOCYTES % 27.7 % (20.0-50.0); MEAN CORPUSCULAR HEMOGLOBIN 33.6 pg (28.0-32.0); MEAN CORPUSCULAR VOLUME 98.9 fL (80.0-94.0); MEAN PLATELET VOLUME 8.6 fl (7.4-10.4); MONOCYTES % 8.8 % (2.0-8.0); NEUTROPHILS % 51.5 % (40.0-76.0); PLATELET 180 x1000/uL (130-400); RED BLOOD CELL COUNT 2.64 mill/uL (4.7-6.1); RED CELL DISTRIBUTION WIDTH 20.3 % (11.6-14.6)
[2017-01-06 00:26] LABS: CARBON DIOXIDE 27 mEq/L (21-32); CHLORIDE 99 mEq/L (98-107)
[2017-01-06 04:00] VITALS: BP 104/66
[2017-01-06] MEDS: DEXT 5%/0.45% NACL KCL 30MEQ/L 1,000 ML IV SCH ×2 (06:06→10:07)
[2017-01-06 08:00] VITALS: BP 133/88
[2017-01-06] MEDS: FOLIC ACID 1MG TABLET PO SCH (09:48)
[2017-01-06] MEDS: MULTIVITAMINS,THER W-MINERALS TABLET PO SCH (09:48)
[2017-01-06] MEDS: THIAMINE HCL 100MG TABLET PO SCH (09:48)
[2017-01-06] MEDS: LACTULOSE 20G/30ML UDC PO SCH ×2 (09:48→17:07)
[2017-01-06] MEDS: FAMOTIDINE 20MG/2ML VIAL IV SCH ×2 (09:49→20:47)
[2017-01-06] MEDS: RIFAXIMIN 550 MG TABLET PO SCH ×2 (10:59→20:48)
[2017-01-06 12:00] VITALS: BP 122/54
[2017-01-06 16:00] VITALS: BP 113/68
[2017-01-06 20:00] VITALS: BP 128/83
[2017-01-07] VITALS: BP 132/63
[2017-01-07] MEDS: DEXT 5%/0.45% NACL KCL 30MEQ/L 1,000 ML IV SCH ×4 (06:46→17:38)
[2017-01-07 07:39] VITALS: BP 129/73
[2017-01-07] MEDS: FOLIC ACID 1MG TABLET PO SCH (08:37)
[2017-01-07] MEDS: LACTULOSE 20G/30ML UDC PO SCH (08:37)
[2017-01-07] MEDS: THIAMINE HCL 100MG TABLET PO SCH (08:37)
[2017-01-07] MEDS: RIFAXIMIN 550 MG TABLET PO SCH ×2 (08:37→21:55)
[2017-01-07] MEDS: MULTIVITAMINS,THER W-MINERALS TABLET PO SCH (08:37)
[2017-01-07] MEDS: FAMOTIDINE 20MG/2ML VIAL IV SCH ×2 (08:37→21:55)
[2017-01-07 11:37] VITALS: BP 112/74
[2017-01-07 16:00] VITALS: BP 109/67
[2017-01-07 20:00] VITALS: BP 116/84
[2017-01-08] VITALS: BP 123/85
[2017-01-08] MEDS: DEXT 5%/0.45% NACL KCL 30MEQ/L 1,000 ML IV SCH ×3 (03:57→20:36)
[2017-01-08 04:00] VITALS: BP 140/98
[2017-01-08 07:40] VITALS: BP 128/82
[2017-01-08] MEDS: RIFAXIMIN 550 MG TABLET PO SCH ×2 (09:36→20:36)
[2017-01-08] MEDS: FAMOTIDINE 20MG/2ML VIAL IV SCH ×2 (09:36→20:36)
[2017-01-08] MEDS: FOLIC ACID 1MG TABLET PO SCH (09:36)
[2017-01-08] MEDS: MULTIVITAMINS,THER W-MINERALS TABLET PO SCH (09:36)
[2017-01-08] MEDS: THIAMINE HCL 100MG TABLET PO SCH (09:36)
[2017-01-08 11:41] VITALS: BP 96/57
[2017-01-08 16:03] VITALS: BP 112/62
[2017-01-08 20:00] VITALS: BP 101/66
[2017-01-09] VITALS: BP 115/61
[2017-01-09] MEDS: DEXT 5%/0.45% NACL KCL 30MEQ/L 1,000 ML IV SCH ×2 (02:40→12:41)
[2017-01-09 04:00] VITALS: BP 115/73
[2017-01-09] MEDS: RIFAXIMIN 550 MG TABLET PO SCH ×2 (08:58→20:39)
[2017-01-09] MEDS: THIAMINE HCL 100MG TABLET PO SCH (08:58)
[2017-01-09] MEDS: MULTIVITAMINS,THER W-MINERALS TABLET PO SCH (08:58)
[2017-01-09] MEDS: FAMOTIDINE 20MG/2ML VIAL IV SCH ×2 (08:58→20:39)
[2017-01-09] MEDS: FOLIC ACID 1MG TABLET PO SCH (08:58)
[2017-01-09 11:53] VITALS: BP 110/70
[2017-01-09 16:00] VITALS: BP 116/74
[2017-01-09 20:00] VITALS: BP 113/56
[2017-01-10] VITALS: BP 117/75
[2017-01-10 04:00] VITALS: BP 110/67
[2017-01-10 08:00] VITALS: BP 165/40
[2017-01-10] MEDS: RIFAXIMIN 550 MG TABLET PO SCH ×2 (08:05→21:16)
[2017-01-10] MEDS: FAMOTIDINE 20MG/2ML VIAL IV SCH ×2 (08:05→21:16)
[2017-01-10] MEDS: FOLIC ACID 1MG TABLET PO SCH (08:05)
[2017-01-10] MEDS: MULTIVITAMINS,THER W-MINERALS TABLET PO SCH (08:05)
[2017-01-10] MEDS: THIAMINE HCL 100MG TABLET PO SCH (08:05)
[2017-01-10 12:00] VITALS: BP 115/72
[2017-01-10 16:00] VITALS: BP 110/74
[2017-01-10 20:00] VITALS: BP 131/79
[2017-01-11] VITALS: BP 119/66
[2017-01-11 04:00] VITALS: BP 102/57
[2017-01-11 08:00] VITALS: BP 114/76
[2017-01-11] MEDS: MULTIVITAMINS,THER W-MINERALS TABLET PO SCH (08:24)
[2017-01-11] MEDS: FAMOTIDINE 20MG/2ML VIAL IV SCH ×2 (08:24→21:58)
[2017-01-11] MEDS: THIAMINE HCL 100MG TABLET PO SCH (08:24)
[2017-01-11] MEDS: RIFAXIMIN 550 MG TABLET PO SCH ×2 (08:24→21:58)
[2017-01-11] MEDS: FOLIC ACID 1MG TABLET PO SCH (08:24)
[2017-01-11 12:00] VITALS: BP 110/72
[2017-01-11 16:00] VITALS: BP 123/76
[2017-01-11 20:00] VITALS: BP 113/73
[2017-01-12] VITALS: BP 139/91
[2017-01-12 04:00] VITALS: BP 116/75
[2017-01-12 06:56] LABS: HEMATOCRIT. 28.3 % (42.0-52.0); HEMOGLOBIN. 9.6 g/dL (14.0-18.0); MEAN CORPUSCULAR HEMOGLOBIN 33.3 pg (28.0-32.0); MEAN PLATELET VOLUME 8.8 fl (7.4-10.4); PLATELET 187 x1000/uL (130-400); RED BLOOD CELL COUNT 2.89 mill/uL (4.7-6.1); RED CELL DISTRIBUTION WIDTH 19.3 % (11.6-14.6)
[2017-01-12 07:18] LABS: CARBON DIOXIDE 27 mEq/L (21-32); CHLORIDE 97 mEq/L (98-107)
[2017-01-12 08:00] VITALS: BP 108/72
[2017-01-12 08:24] LABS: PLATELET ESTIMATE NORMAL
[2017-01-12] MEDS: FOLIC ACID 1MG TABLET PO SCH (08:39)
[2017-01-12] MEDS: RIFAXIMIN 550 MG TABLET PO SCH ×2 (08:39→20:17)
[2017-01-12] MEDS: THIAMINE HCL 100MG TABLET PO SCH (08:39)
[2017-01-12] MEDS: MULTIVITAMINS,THER W-MINERALS TABLET PO SCH (08:39)
[2017-01-12] MEDS: FAMOTIDINE 20MG/2ML VIAL IV SCH ×2 (08:39→20:17)
[2017-01-12 12:00] VITALS: BP 112/73
[2017-01-12 16:00] VITALS: BP 127/80
[2017-01-12 20:00] VITALS: BP 117/79
[2017-01-13] VITALS: BP 128/86
[2017-01-13 04:00] VITALS: BP 95/55
[2017-01-13] MEDS: MULTIVITAMINS,THER W-MINERALS TABLET PO SCH (08:43)
[2017-01-13] MEDS: THIAMINE HCL 100MG TABLET PO SCH (08:43)
[2017-01-13] MEDS: RIFAXIMIN 550 MG TABLET PO SCH ×2 (08:43→20:18)
[2017-01-13] MEDS: FOLIC ACID 1MG TABLET PO SCH (08:43)
[2017-01-13] MEDS: FAMOTIDINE 20MG/2ML VIAL IV SCH ×2 (08:43→20:18)
[2017-01-13 12:07] VITALS: BP 105/72
[2017-01-13 16:00] VITALS: BP 118/76
[2017-01-13 20:00] VITALS: BP 100/68
[2017-01-14] VITALS: BP 102/65
[2017-01-14 04:00] VITALS: BP 127/82
[2017-01-14 08:00] VITALS: BP 127/76
[2017-01-14] MEDS: FAMOTIDINE 20MG/2ML VIAL IV SCH (09:06)
[2017-01-14] MEDS: THIAMINE HCL 100MG TABLET PO SCH (09:06)
[2017-01-14] MEDS: MULTIVITAMINS,THER W-MINERALS TABLET PO SCH (09:06)
[2017-01-14] MEDS: FOLIC ACID 1MG TABLET PO SCH (09:06)
[2017-01-14] MEDS: RIFAXIMIN 550 MG TABLET PO SCH (09:06)
[2017-01-14 12:00] VITALS: BP 131/92
[2017-01-14 16:00] VITALS: BP 126/83
[2017-01-14 16:10] VITALS: BP 126/83
== END 2017-01-14 16:48 | disposition home or self-care (01) | DRG 282 ==
LOC: ER 16:09 → 6EST 17:55 → ENRESERV 19:51 → 6EST 12-09 20:16 → 7WST 12-10 16:10 → 8WST 01-05 22:56
PROVIDERS: ADMIT Internal Medicine; ATTEND Internal Medicine
DX: K85.90 Acute pancreatitis without necrosis or infection, unspecified (principal); D61.818 Other pancytopenia; I95.9 Hypotension, unspecified; K70.30 Alcoholic cirrhosis of liver without ascites; E83.42 Hypomagnesemia; E88.09 Other disorders of plasma-protein metabolism, not elsewhere classified; K76.0 Fatty (change of) liver, not elsewhere classified; K72.90 Hepatic failure, unspecified without coma; D63.8 Anemia in other chronic diseases classified elsewhere; E87.6 Hypokalemia; I10 Essential (primary) hypertension; R74.0 Nonspecific elevation of levels of transaminase and lactic acid dehydrogenase [LDH]; E87.1 Hypo-osmolality and hyponatremia; K59.00 Constipation, unspecified; R19.7 Diarrhea, unspecified; F17.210 Nicotine dependence, cigarettes, uncomplicated; F10.20 Alcohol dependence, uncomplicated; Y90.9 Presence of alcohol in blood, level not specified; Z53.21 Procedure and treatment not carried out due to patient leaving prior to being seen by health care provider
CPT/HCPCS: 36415; 74000; 74181; 76705; 80048; 80053; 80076; 80305; 81001; 82140; 82150; 82248; 82270; 83690; 83735; 84478; 85025; 85027; 85610; 86705; 86709; 86803; 87186; 87340; 96374; 96375; 97110; 97116; 97162; 97530; 99285; C1893; G0482; J2060; J2270; J2405; J3411; J3475; J3480; J3490; J7030; J7050; J7060; J7070

== ENCOUNTER 2017-04-30 16:43 | Emergency (ER) | payer MEDICAID ==
[~2017-04-30] VITALS: Ht 172.7 cm; Wt 76.0 kg
[2017-04-30 16:50] VITALS: BP 136/88
== END 2017-04-30 19:30 | disposition left against medical advice (07) ==
LOC: ER 19:03
DX: M25.561 Pain in right knee (principal); Z53.21 Procedure and treatment not carried out due to patient leaving prior to being seen by health care provider